=== PATIENT | female | born 1965 | race Caucasian/White ===

== ENCOUNTER 2018-05-26 09:07 | Emergency (ER) | payer BC ==
[2018-05-26 09:34] VITALS: BP 127/68
--- NOTE | 2018-05-26 10:22 | UC ---
Laceration HPI - HPI Summary HPI Summary: 53-year-old male presents with complaints of laceration to her right little finger. States she was washing dishes and accidentally cut her finger on a broken glass just prior to arrival. She is noted 2 small lacerations to the lateral aspect of the finger. Bleeding was controlled with direct pressure prior to arrival. Reports last tetanus within the past 5 years. - History Of Current Complaint Chief Complaint: UCLaceration Stated Complaint: RIGHT PINKY INJURY/LAC Time Seen by Provider: 05/26/18 09:28 Hx Obtained From: Patient Hx Last Menstrual Period: 02-07-15 Pain Intensity: 0 - Allergies/Home Medications Allergies/Adverse Reactions: Allergies Allergy/AdvReac Type Severity Reaction Status Date / Time pennicillin Allergy Swelling Uncoded 05/26/18 09:30 Of Face,Lips,& Throat sulfa Allergy Hives Uncoded 05/26/18 09:30 Home Medications: Home Medications Anxiety Med 1 tab DAILY 05/26/18 [History Confirmed 05/26/18] Blood Pressure Med 1 tab DAILY 05/26/18 [History Confirmed 05/26/18] PMH/Surg Hx/FS Hx/Imm Hx Previously Healthy: Yes Cardiovascular History: Hypertension Psychological History: Anxiety - Surgical History Surgical History: Yes Surgery Procedure, Year, and Place: ectopic 5 years ago - Family History Known Family History: Positive: Non-Contributory - Social History Occupation: Employed Full-time Lives: With Family Alcohol Use: Occasionally Substance Use Type: None Smoking Status (MU): Never Smoked Tobacco - Immunization History Most Recent Tetanus Shot: UTD Review of Systems All Other Systems Reviewed And Are Negative: Yes Constitutional: Positive: Negative Skin: Positive: Other - See HPI Respiratory: Positive: Negative Cardiovascular: Positive: Negative Gastrointestinal: Positive: Negative Genitourinary: Positive: Negative Motor: Negative: Weakness Neurovascular: Negative: Decreased Sensation Musculoskeletal: Negative: Arthralgia, Decreased ROM Neurological: Positive: Negative Is Patient Immunocompromised?: No Physical Exam - Summary Physical Exam Summary: GENERAL APPEARANCE: Well developed, well nourished, alert and cooperative, and appears to be in no acute distress. CARDIAC: Normal S1 and S2. No S3, S4 or murmurs. Rhythm is regular. There is no peripheral edema, cyanosis or pallor. Extremities are warm and well perfused. Capillary refill is less than 2 seconds. Peripheral pulses intact. LUNGS: Clear to auscultation without rales, rhonchi, wheezing or diminished breath sounds. ABDOMEN: Positive bowel sounds. Soft, nondistended, nontender. No guarding or rebound. No masses or hepatosplenomegally. MUSKULOSKELETAL: Full flexion and extension of the right little finger intact to resistance. No joint erythema or tenderness. Sensation and circulation intact distally. SKIN: 0.2 cm C-shaped superficial flap laceration to the distal lateral aspect of her right pinky finger and a 0.5 cm linear flap laceration to the lateral aspect of her mid little finger near the PIP (see diagram). No foreign bodies noted. Bleeding controlled. Triage Information Reviewed: Yes Vital Signs: Initial Vital Signs Temp 96.8 F 05/26/18 09:32 Pulse 84 05/26/18 09:32 Resp 15 05/26/18 09:32 BP 127/68 05/26/18 09:32 Pulse Ox 99 05/26/18 09:32 Vital Signs Reviewed: Yes Images Hands: 1 - 0.2 cm superfical C-shaped flap laceration 2 - 0.5 cm superficial linear flap laceration Procedures - Splinting Right 5th Digit Location: Right little finger Pre-Made Type: Padded aluminum Splint: Finger Pre-Proc Neuro Vasc Exam: normal Post-Proc Neuro Vasc Exam: normal Laceration Repair - Laceration Repair 1 Procedure Summary: C-shaped superficial flap laceration repaired with skin adhesive. 2 Procedure Summary: 0.5 cm superficial linear flap laceration repaired with abdulaziz adhesive and two 1/ 8 inch Steri-Strips. Laceration Course/Dx - Course/Dx Course Of Treatment: 53-year-old male presents with complaints of laceration to her right little finger. States she was washing dishes and accidentally cut her finger on a broken glass just prior to arrival. She is noted 2 small lacerations to the lateral aspect of the finger. Bleeding was controlled with direct pressure prior to arrival. Reports last tetanus within the past 5 years. Afebrile. Vital signs stable. Exam reveals an adult female in no acute distress with 2 lacerations: (1) a 0.2 cm C-shaped superficial flap laceration to the distal lateral aspect of her right pinky finger and (2) a 0.5 cm linear flap laceration to the lateral aspect of her mid little finger near the PIP (see diagram). Flexion and extension intact to resistance. No foreign bodies noted. Bleeding controlled. The wounds were thoroughly irrigated with tap water and the patient self cleansed with soap and water. Laceration #1 was repaired using skin adhesive. Laceration #2 was repaired with a combination of skin adhesive and two 1/8 inch Steri-Strips. An adhesive dressing was applied by the RN and the patient was placed in an aluminum finger splint and advised to wear for the next 2-3 days to prevent the wounds from reopening. Wound care , anticipatory guidance, and warning symptoms were reviewed with the patient. Verbalizes understanding and agrees with plan of care. - Diagnosis Provider Diagnosis: Superficial laceration of hand Discharge - Sign-Out/Discharge Documenting (check all that apply): Patient Departure All imaging exams completed and their final reports reviewed: No Studies - Discharge Plan Condition: Stable Disposition: HOME Patient Education Materials: Laceration (ED), Skin Adhesive Care (ED), Steristrips (ED) Referrals: Samina Mays MD [Primary Care Provider] - If Needed Additional Instructions: Your lacerations were repaired with a combination of skin adhesive and Steri- Strips. The skin adhesive will slowly wear off over the next several days. Keep the skin adhesive dry for the next 24 hours. After 24 hours you may shower and wash your hands as usual. Do not apply any lotions or ointments to the adhesive as this may dissolve the adhesive and cause the wound to reopen. The Steri-Strips will slowly peel up from the ends over the next several days. You may trim the ends as needed but do not pull off or you may reopen the wound. Keep the wounds covered with a dressing. Change this at least once a day or anytime the dressing becomes wet or soiled. Wear the splint that was applied in the clinic for the next 2-3 days to help prevent the wound from reopening. Take acetaminophen (Tylenol) or ibuprofen (Advil, Motrin) according to directions as needed for pain. Watch for signs of infection including fever greater than 100.5 F, severe pain not managed with pain medication, redness that spreads, swelling of the finger, pus draining from the wound, or any worsening of symptoms. Seek immediate medical attention should any of these occur. - Billing Disposition and Condition Condition: STABLE Disposition: Home - Attestation Statements Provider Attestation: Per institutional requirements, I have reviewed the chart, however, I was not consulted specifically or made aware of this patient by the midlevel provider. I did not personally evaluate, interact with , or disposition this patient
== END 2018-05-26 10:31 | disposition home or self-care (01) ==
LOC: UCCORT 09:07
DX: S61.216A Laceration without foreign body of right little finger without damage to nail, initial encounter (principal); I10 Essential (primary) hypertension; F41.9 Anxiety disorder, unspecified; Z88.0 Allergy status to penicillin; Z79.899 Other long term (current) drug therapy; Z88.2 Allergy status to sulfonamides; W26.8XXA Contact with other sharp object(s), not elsewhere classified, initial encounter; Y93.89 Activity, other specified; Y92.9 Unspecified place or not applicable
CPT/HCPCS: 12001; 99201; G0463

== ENCOUNTER 2018-11-21 14:40 | Emergency (ER) | payer BC ==
[2018-11-21 15:30] VITALS: BP 132/76
--- NOTE | 2018-11-21 15:43 | UC ---
Skin Complaint HPI - HPI Summary HPI Summary: 53-year-old female who was treated for scabies approximately 3 weeks ago and the rash completely disappeared and now she has similar rash on her left upper leg. She also has had cold symptoms over the past 5 or 6 days with head congestion and nonproductive cough. She is a nonsmoker. - History of Current Complaint Chief Complaint: UCRespiratory Time Seen by Provider: 11/21/18 15:20 Stated Complaint: COUGH CONGESTION FEVER Hx Obtained From: Patient Hx Last Menstrual Period: 11/12/18 ?: No Onset/Duration: Gradual Onset Skin Exposure Onset/Duration: Days Ago Timing: Constant Onset Severity: Mild Current Severity: Mild Pain Intensity: 3 Location: Other - Left upper thigh. Character: Pruritus, Redness Aggravating Factor(s): Nothing Alleviating Factor(s): Nothing Associated Signs & Symptoms: Positive: Cough - Patient has also had cold symptoms with head congestion and nonproductive cough. She denies any shortness of breath. - Allergy/Home Medications Allergies/Adverse Reactions: Allergies Allergy/AdvReac Type Severity Reaction Status Date / Time pennicillin Allergy Swelling Uncoded 11/21/18 15:21 Of Face,Lips,& Throat sulfa Allergy Hives Uncoded 11/21/18 15:21 PMH/Surg Hx/FS Hx/Imm Hx Previously Healthy: Yes Psychological History: Anxiety - Surgical History Surgical History: Yes Surgery Procedure, Year, and Place: ectopic 5 years ago - Family History Known Family History: Positive: Non-Contributory - Social History Alcohol Use: None Substance Use Type: None Smoking Status (MU): Never Smoked Tobacco - Immunization History Most Recent Tetanus Shot: UTD Review of Systems All Other Systems Reviewed And Are Negative: Yes Skin: Positive: Rash - Itchy rash left upper thigh, patient states this is similar to when she had scabies. ENT: Positive: Nasal Discharge - Clear nasal coryza., Sinus Congestion - Head congestion. Respiratory: Positive: Cough - Nonproductive cough, denies shortness of breath. Is Patient Immunocompromised?: No Physical Exam Triage Information Reviewed: Yes Appearance: Well-Appearing, No Pain Distress, Well-Nourished Vital Signs: Initial Vital Signs Temp 97.8 F 11/21/18 15:22 Pulse 70 11/21/18 15:22 Resp 16 11/21/18 15:22 BP 132/76 11/21/18 15:22 Pulse Ox 100 11/21/18 15:22 Vital Signs Reviewed: Yes Eyes: Positive: Conjunctiva Clear ENT: Positive: Pharynx normal, Nasal congestion, Nasal drainage - Clear nasal coryza., TMs normal, Uvula midline Neck: Positive: Supple, Nontender, No Lymphadenopathy Respiratory: Positive: Lungs clear, Normal breath sounds, No respiratory distress, No accessory muscle use Cardiovascular: Positive: RRR, No Murmur, Pulses Normal, Brisk Capillary Refill Musculoskeletal Exam: Normal Neurological Exam: Normal Psychological Exam: Normal Skin: Positive: Rashes - Patient has a red dry rash to the left upper outer thigh. No linear aspect to it. Course/Dx - Course Course Of Treatment: At this point time because the patient was treated for scabies once and she states the rash on her left upper leg is similar to what she had I am going to have her re-treat. Instructions about laundering bedding and clothing was given. I feel the upper respiratory illness is viral in nature but she is to follow-up with her primary care provider for any worsening symptoms, any fever or productive cough. Patient is agreeable to this plan of action. - Diagnoses Provider Diagnosis: Scabies, URI (upper respiratory infection) Discharge ED - Sign-Out/Discharge Documenting (check all that apply): Patient Departure All imaging exams completed and their final reports reviewed: No Studies - Discharge Plan Condition: Good Disposition: HOME Prescriptions: Permethrin [Elimite] 60 gm TP ONCE #1 tube Patient Education Materials: Scabies (ED), Upper Respiratory Infection (DC) Referrals: Samina Mays MD [Primary Care Provider] - Additional Instructions: Use the Elimite cream as directed, launder all your bedding and clothing. Follow-up with your primary care provider as needed. Increase fluids and over- the-counter cold medicine as directed. - Billing Disposition and Condition Condition: GOOD Disposition: Home
== END 2018-11-21 15:51 | disposition home or self-care (01) ==
LOC: UCCORT 14:40
DX: B86 Scabies (principal); J06.9 Acute upper respiratory infection, unspecified; Z88.0 Allergy status to penicillin; Z88.2 Allergy status to sulfonamides
CPT/HCPCS: 99212; G0463